=== PATIENT | male | born 1975 | race American Indian/Alaskan Native ===

== ENCOUNTER 2017-09-22 21:44 | Inpatient (IN) | payer MEDICAID, OTHER ==
[2017-09-22 22:07] VITALS: BMI 27.1
[2017-09-22 22:18] LABS: BASO # 0.1 K/uL (0.0-0.2); BASO % 1.1 % (0.0-2.0); EOS # 0.1 K/uL (0.0-0.7); EOS % 0.9 % (0.0-4.0); HEMOGLOBIN 11.9 g/dL (12.0-18.0); LYMPH # 2.3 K/uL (1.0-4.3); LYMPH % 34.7 % (20.0-40.0); MEAN CELL VOLUME 85.5 fL (80.0-94.0); MEAN CORPUSCULAR HEMOGLOBIN 28.2 pg (27.0-31.0); MEAN PLATELET VOLUME 9.8 fL (7.2-11.7); MONO # 0.7 K/uL (0.0-0.8); MONO % 10.4 % (0.0-10.0); NEUT # 3.5 K/uL (1.8-7.0); NEUT % 52.9 % (50.0-75.0); RBC 4.22 Mil/uL (4.40-5.90); RED CELL DISTRIBUTION WIDTH 14.9 % (11.5-14.5); WHITE BLOOD COUNT 6.6 K/uL (4.8-10.8)
[2017-09-22 22:20] LABS: URINE BACTERIA RARE (<OCC); URINE BILIRUBIN NEGATIVE (NEGATIVE); URINE BLOOD NEGATIVE (NEGATIVE); URINE CLARITY Clear (Clear); URINE COLOR Yellow (YELLOW); URINE GLUCOSE (UA) NORMAL (Normal); URINE LEUKOCYTE ESTERASE NEG Leu/uL (Negative); URINE NITRATE NEGATIVE (NEGATIVE); URINE PROTEIN NEGATIVE (NEGATIVE)
[2017-09-22 22:28] LABS: ALB/GLOB RATIO 1.2 (1.0-2.1); ALBUMIN 3.5 g/dL (3.5-5.0); ALT/SGPT 28 U/L (21-72); AST/SGOT 24 U/L (17-59); BLOOD UREA NITROGEN 11 mg/dL (9-20); CALCIUM 8.2 mg/dl (8.6-10.4); GFR AFRICAN-AMERICAN > 60; GFR NON-AFRICAN AMERICAN > 60
[2017-09-22 22:34] LABS: BARBITURATES, UR NEGATIVE (NEGATIVE); BENZODIAZEPINES, UR NEGATIVE (NEGATIVE); OPIATES, UR NEGATIVE (NEGATIVE); PHENCYCLIDINE, UR NEGATIVE (NEGATIVE)
--- NOTE | 2017-09-22 23:07 | C.PDOC ---
History Of Present Illness 41 year old homeless male with PMHx of schizophrenia is brought in by EMS from [facility] for bizarre behaviour. Patient called 911, he reports he is off his schizophrenia medications and is having thoughts on injuring himself. Time Seen by Provider: 09/22/17 22:00 Chief Complaint (Nursing): Psychiatric Evaluation History Per: Patient, EMS History/Exam Limitations: no limitations Onset/Duration Of Symptoms: Hrs Current Symptoms Are (Timing): Still Present Suicide/Self Injury Attempted (Context): None Modifying Factor(s): None Severity: None Associated Symptoms: Suicidal Thoughts, Suicidal Plan Involuntary Hold By: None Recent travel outside of the [place]: No Additional History Per: Patient, EMS Past Medical History Reviewed: Historical Data, Nursing Documentation, Vital Signs Vital Signs: Last Vital Signs Temp 97.3 F L 09/22/17 21:57 Pulse 86 09/22/17 21:57 Resp 16 09/22/17 21:57 BP 113/67 09/22/17 21:57 Pulse Ox 96 09/22/17 23:10 - Medical History PMH: Schizophrenia Denies: Diabetes, Hepatitis, HIV, HTN, Chronic Kidney Disease, Seizures, Sexually Transmitted Disease Surgical History: No Surg Hx - [facility] GROUP PSYCHOTHERAPY (01/25/17) INDIVID PSYCHOTHERAP NEC (04/27/13) INDIVIDUAL PSYCHOTHERAPY, COGNITIVE-BEHAVIORAL (01/25/17) OTHER GROUP THERAPY (04/27/13) Family History: States: Unknown Family Hx - Social History Hx Alcohol Use: Yes (last drink 01/24/17) Hx Substance Use: Yes (mj) Review Of Systems Constitutional: Negative for: Fever, Chills Cardiovascular: Negative for: Chest Pain, Palpitations Respiratory: Negative for: Cough, Shortness of Breath Gastrointestinal: Negative for: Nausea, Vomiting, Abdominal Pain Skin: Negative for: Rash Neurological: Negative for: Weakness, Numbness Psych: Positive for: Suicidal ideation Physical Exam - Physical Exam Appears: Non-toxic, Unkempt, Other (tall muscular black male disheveled, malodorous, bizarre) Skin: Normal Color, Warm, Dry Head: Atraumatic, Normacephalic Nose: No Discharge, No Deformity Oral Mucosa: Moist Neck: Normal ROM, Supple Chest: Symmetrical Cardiovascular: Rhythm Regular, No Murmur Respiratory: Normal Breath Sounds, No Rales, No Rhonchi, No Wheezing Gastrointestinal/Abdominal: Soft, No Tenderness Extremity: Normal ROM, No Pedal Edema, No Calf Tenderness, No Deformity, No Swelling Neurological/Psych: Oriented x3 ED Course And Treatment - Laboratory Results Result Diagrams: 09/22/17 22:13 09/22/17 22:13 Lab Interpretation: Normal (tox, etoh neg.) O2 Sat by Pulse Oximetry: 96 (On RA) Pulse Ox Interpretation: Normal Reevaluation Time: 00:38 Reassessment Condition: Improved (remains calm cooperative) - Physician Consult Information Outcome Of Conversation: 0030: d/w Crisis Workers, ok to admit. Medical Decision Making Medical Decision Making: Plan: * 1:1 obs Disposition Doctor Will See Patient In The: Hospital Counseled Patient/Family Regarding: Studies Performed, Diagnosis - Disposition Disposition: HOSPITALIZED Disposition Time: 00:39 Condition: GOOD Forms: [facility] ([facility]) - Clinical Impression Clinical Impression: Schizophrenia - Scribe Statement The provider has reviewed the documentation as recorded by the Scribe Bruno Stewart All medical record entries made by the Scribe were at my direction and personally dictated by me. I have reviewed the chart and agree that the record accurately reflects my personal performance of the history, physical exam, medical decision making, and the department course for this patient. I have also personally directed, reviewed, and agree with the discharge instructions and disposition.
--- NOTE | 2017-09-23 03:10 | PCM.BM ---
<MarthaViridiana - Last Filed: 09/23/17 03:08> Treatment Plan Problems - Problems identified on initial assessmt Auditory Hallucination Date Initiated: 09/23/17 Time Initiated: :30 Assessment reference: NA Status: Active Suicidal Ideation Date Initiated: 09/23/17 Time Initiated: :30 Status: Monitor (t) Treatment assets and liabiliti Patient Assests: physically healthy Patient Liabilities: financial problems, poor support system, relationship conflicts, language/speech - Milieu Protocol Maintain good personal hygiene: daily Encourage regular showers, daily Remind patient to perform daily oral care Maintain personal safety: every shift Educate patient to report safety concerns to staff, every shift Monitor environment for contraband/sharps Medication safety: Monitor for expected outcome, potential side effects: every shift, Assess barriers to learning: every shift, Assess readiness for medication education: every shift <Porsche Delacruz - Last Filed: 09/28/17 11:48> - Diagnosis (1) Schizophrenia Status: Acute Interventions: 09/28/17 11:48 * Assess/adjust medications daily and /or as needed * See patient on an individual basis 7x/week to assess status of hallucinations * Discuss risks, benefits, side effects and alternatives of medications * <Rosario Weber - Last Filed: 09/28/17 11:55> Family Contact Family involvement: Famj luisy/SO not involved - Goals for Treatment Patient goals for treatment: "I don't want to go to a day program." Discharge/Continuing Care - Education Needs Education Needs: Patient Medication, Patient Coping Skills, Patient Placement options, Patient Community resources - Discharge Discharge Criteria: Tolerates medication w/o severe side effects, Reduction of target symptoms Discharge to:: Custodial - Treatment Team Participation Discussed with Family/SO: No Was Patient/Family/SO present at Treatment Team Meeting: Yes
--- NOTE | 2017-09-25 00:01 | PCM.PSYCH ---
Initial Psychiatric Evaluation - Initial Psychiatric Evaluation Type of Admission: Voluntary Legal Status: Capacity History of Present Illness and Precipitating Events: Pt. is a 41 y/o AA, unemployed, undomiciled male that was transported to Ed after he told [place] police that he was feeling suicidal with a plan to jump in front of a car. Pt. reports that he has a long history of schizophrenia and hearing voices. Pt. denies any A/V/T hallucinations at the moment. Pt. does admit to feeling suicidal for the last couple of days. Pt. reports that he also feels depressed because he is homeless and has been staying at different shelters. Pt. reports that he is from [facility] and has have been hospitalized at [facility] and [facility] [place] [facility] [place]. Pt. reports that he was given Risperdal oral medication in the past, but he has not been taking any medications. Pt. is a poor historian and could not provide a lot of information about his upbringing. Pt. reports that he has no family involvement and that he has never been or has any children. Pt. admits to drinking alcohol in the past, but does not remember the last time he drank alcohol. Pt. was wearing hospital gown. Pt. appearance was unkempt and he had a full isidro. Pt. presented malodorous and unkempt appearance. Pt. appeared stated age. Pt. mood was depressed and affect was constricted. Pt. maintained eye contact and his speech was pressure. No evidence of delusions, but pt. admits to history of auditory hallucinations. No signs of motor activity during this assessment. Pt. was alert and oriented x3. Judgment appeared intact as evidence by insight regarding need for hospitalization Current Medications: Active Medications Generic Name Dose Route Start Last Admin Trade Name Freq PRN Reason Stop Dose Admin Acetaminophen 650 mg 09/23/17 01:21 Tylenol 325mg Tab PO Q6 PRN Pain, moderate (4-7) Aripiprazole 10 mg 09/23/17 14:45 09/24/17 09:38 Abilify PO 10 mg DAILY NINO Administration Hydroxyzine HCl 25 mg 09/23/17 01:21 09/23/17 22:08 Atarax PO 25 mg Q6H PRN Administration Anxiety Sertraline HCl 50 mg 09/24/17 10:00 09/24/17 09:38 Zoloft PO 50 mg DAILY NINO Administration Trazodone HCl 50 mg 09/23/17 01:22 09/24/17 22:13 Desyrel PO 50 mg HS NINO Administration Past Psychiatric History - Past Psychiatric History Previous Treatment History: Inpatient Pertinent Medical Hx (Current Medical&Sleep Prob, Allergies): Allergies Allergy/AdvReac Type Severity Reaction Status Date / Time No Known Allergies Allergy Verified 09/22/17 22:04 Benztropine [Cogentin] 1 mg PO HS 01/25/17 risperiDONE [RisperDAL Tab] 2 mg PO HS 01/25/17 Review of Systems - Review of Systems All systems: reviewed and no additional remarkable complaints except - Psychiatric Psychiatric: Anxiety, Auditory Hallucinations, Irritability, Paranoia, Suicidal Ideation, Visual Hallucinations Mental Status Examination - Personal Presentation Personal Presentation: Looks stated age - Affect Affect: Blunted - Motor Activity Motor Activity: Psychomotor Agitation - Reliability in Providing Information Reliability in Providing Information: Poor, due to alteration in thoughts - Speech Speech: Disorganized - Mood Mood: Anxious - Formal Thought Process Formal Thought Process: Hallucinations, Delusions, Paranoia, Loosening of associations - Hallucinations/Delusions Hallucinations: Visual, Auditory Delusions: Persecution - Obsessions/Compulsions Obsessions: No Compulsions: No - Cognitive Functions Orientation: Person, Place, Situation, Time Sensorium: Alert Attention/Concentration: Attentive Abstract Thinking: [place] Estimate of Intelligence: Below average Judgement: Imparied, as evidence by: Poor judgement, Imparied, as evidence by: Lack of insight into illness - Risk Risk: Suicidal, Diminished functioning - Limitations Limitations: Living alone DSM 5 DX - DSM 5 DSM 5 Diagnosis: Schizophrenia paranoid type continuous - Recommended/Plan of Treatment Treatment Recommendations and Plan of Treatment: Schizophrenia paranoid type continuous CBT Psychoeducation Supportive therapy, group therapy, individual therapy D/C Abilify 10 mg PO QHS Risperdal 2 mg PO QHS Cogentin 1 mg pO QHS Zoloft 50 mg PO Q Daily Hydroxyzine 25 mg PO Q6 hr prn Trazodone 50 mg by mouth daily at bedtime - Smoking Cessation Smoking Cessation Initiated: No
--- NOTE | 2017-09-25 09:37 | PCM.PSYCH ---
Initial Psychiatric Evaluation - Initial Psychiatric Evaluation Type of Admission: Voluntary Legal Status: Capacity Chief Complaint (in patient's own words): I AM DEPRESSED Patient's Reaction to Hospitalization: I NEED TO BE SOMEWHERE SAFE History of Present Illness and Precipitating Events: PT IS A 41 YEAR OLD BLACK HOMELESS UNEMPLOYED MALE WHO AKED TO BEADMITTED BECAUSE OF DEPRESSION AND PARANOIA. PT HAS BEEN HOMELESS SINCE THEAGE OF 19. HIS PARENTA AREMARY ANN. HE IS AN ONLY CHILD. THERE IS NO FAMILY HISTORY OF MENTAL ILLNESS OR SUBSTANCE ABUSE. HE HAS NO LEGAL OR HISTORY. 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 HE HAS NEVER BEEN ON PSYCHIATRIC MEDS. HE HAD A PLAN TO WALK IN FRONT OF A CAR. HE IS PARANOID Current Medications: Active Medications Generic Name Dose Route Start Last Admin Trade Name Freq PRN Reason Stop Dose Admin Acetaminophen 650 mg 09/23/17 01:21 Tylenol 325mg Tab PO Q6 PRN Pain, moderate (4-7) Benztropine Mesylate 1 mg 09/25/17 22:00 Cogentin PO HS NINO Hydroxyzine HCl 25 mg 09/23/17 01:21 09/23/17 22:08 Atarax PO 25 mg Q6H PRN Administration Anxiety Risperidone 2 mg 09/25/17 22:00 Risperdal Tab PO HS NINO Sertraline HCl 50 mg 09/24/17 10:00 09/24/17 09:38 Zoloft PO 50 mg DAILY NINO Administration Trazodone HCl 50 mg 09/23/17 01:22 09/24/17 22:13 Desyrel PO 50 mg HS NINO Administration Past Psychiatric History - Past Psychiatric History Previous Treatment History: None Pertinent Medical Hx (Current Medical&Sleep Prob, Allergies): Allergies Allergy/AdvReac Type Severity Reaction Status Date / Time No Known Allergies Allergy Verified 09/22/17 22:04 Benztropine [Cogentin] 1 mg PO HS 01/25/17 risperiDONE [RisperDAL Tab] 2 mg PO HS 01/25/17 Review of Systems - EENT Eyes: UNREMARKABLE Ears: UNREMARKABLE Nose/Mouth/Throat: UNREMARKABLE - Cardiovascular Cardiovascular: UNREMARKABLE - Respiratory Respiratory: UNREMARKABLE - Gastrointestinal Gastrointestinal: UNREMARKABLE - Genitourinary Genitourinary: UNREMARKABLE - Reproductive: Male Reproductive:Male: UNREMARKABLE - Musculoskeletal Musculoskeletal: UNREMARKABLE - Integumentary Integumentary: UNREMARKABLE - Neurological Neurological: UNREMARKABLE - Psychiatric Psychiatric: Abnormal Sleep Pattern, Anhedonia, Anxiety, Depression, Difficulty Concentrating, Hopelessness, Irritability, Paranoia, Suicidal Ideation - Endocrine Endocrine: UNREMARKABLE - Hematologic/Lymphatic Hematologic: UNREMARKABLE Mental Status Examination - Personal Presentation Personal Presentation: Looks older than stated age, Dressed appropriate to season - Affect Affect: Constricted - Motor Activity Motor Activity: Calm - Reliability in Providing Information Reliability in Providing Information: Fair - Speech Speech: Organized - Mood Mood: Other Additional comments: IRRITABLE - Formal Thought Process Formal Thought Process: Paranoia - Obsessions/Compulsions Obsessions: None Compulsions: None - Cognitive Functions Orientation: Person, Place, Situation, Time Sensorium: Alert Attention/Concentration: Attentive Abstract Thinking: [place] Estimate of Intelligence: Average Judgement: Intact, as evidence by: Insight regarding need for hospitalization Memory: Recent intact, as evidence by: Ability to recall events of the day, Remote intact, as evidenced by: Ability to recall historical events - Risk Risk: Suicidal - Strength & Assets Inventory Strength & Assets Inventory: Education - Limitations Limitations: Other Additional comments: HOMELESS DSM 5 DX - DSM 5 DSM 5 Diagnosis: MAJOR DEPRESSIVE DISORDER SINGLE EPISODE SEVERE WITH PSYCHOTIC FEATURES ABILIDYLAN ZOLOFT GROUPS SUPPORTIVE PSYCHOTHERAPY - Recommended/Plan of Treatment Treatment Recommendations and Plan of Treatment: MDD ZOLOFT LISBETH Projected ELOS: 10 DAYS Discharge Plan and Discharge Criteria: NO LONGER SUICIDAL - Smoking Cessation Smoking Cessation Initiated: No
--- NOTE | 2017-09-25 10:08 | PCM.PYCHPN ---
Psychiatric Progress Note - Psychiatric Progress Note Patient seen today, length of contact: 15 min Patient Chief Complaint: I am melania.' Problems Identified/Issues Discussed: Patient seen and evaluated, chart reviewed and discussed with the nurse. Patient remained disorganized and internally preoccupied. Patient remained isolated, confined and withdrawn. He still reports of hearing voices. Patient still appears paranoid and delusional. He reports depressed mood and remained isolated and withdrawn. He continued to pace back and forth in the hallways. He is taking medication and denies any side effects. Supportive therapy and psychoeducation were given. Medication Change: No Medical Record Reviewed: Yes Mental Status Examination - Cognitive Function Orientation: Person, Place, Situation, Time Memory: Intact Attention: WNL Concentration: Poor Association: Loose Fund of Knowledge: Poor - Mood Mood: Anxious - Affect Affect: Broad, Constricted - Speech Speech: Loud, Pressured - Formal Thought Process Formal Thought Process: Hallucinations, Delusions, Paranoia, Loosening of associations - Suicidal Ideation Suicidal Ideation: No - Homicidal Ideation Homicidal Ideation: No Goal/Treatment Plan - Goal/Treatment Plan Need for Continued Stay: Remain at risks for inpatient hospitalization, Discharge may exacerbated symptoms, Failed transitioning Progress Toward Problem(s) and Goals/Treatment Plan: Schizophrenia paranoid type continuous CBT Psychoeducation Supportive therapy, group therapy, individual therapy Risperdal 2 mg PO QHS Cogentin 1 mg pO QHS Zoloft 50 mg PO Q Daily Hydroxyzine 25 mg PO Q6 hr prn Trazodone 50 mg by mouth daily at bedtime - Smoking Cessation Smoking Cessation Initiated: No
--- NOTE | 2017-09-25 10:09 | PCM.PYCHPN ---
Psychiatric Progress Note - Psychiatric Progress Note Patient seen today, length of contact: 15 min Patient Chief Complaint: I am melania Problems Identified/Issues Discussed: Patient seen and evaluated, chart reviewed and discussed with the nurse. As per the staff, pt remained disheveled and unkempt. He remained disorganized and internally preoccupied. He is responding to the internal stimuli. He remained isolated, confined and withdrawn, and reports of hearing voices. Patient still appears paranoid and delusional and reports depressed mood. He continued to pace back and forth in the hallways. He is taking medication and denies any side effects. Supportive therapy and psychoeducation were given. Medication Change: Yes (increase Trazodone) Medical Record Reviewed: Yes Mental Status Examination - Cognitive Function Orientation: Person, Place, Situation, Time Memory: Intact Attention: WNL Concentration: Poor Association: Loose Fund of Knowledge: Poor - Mood Mood: Anxious - Affect Affect: Broad, Constricted - Speech Speech: Loud, Pressured - Formal Thought Process Formal Thought Process: Hallucinations, Delusions, Paranoia, Loosening of associations - Suicidal Ideation Suicidal Ideation: No - Homicidal Ideation Homicidal Ideation: No Goal/Treatment Plan - Goal/Treatment Plan Need for Continued Stay: Remain at risks for inpatient hospitalization, Discharge may exacerbated symptoms, Failed transitioning Progress Toward Problem(s) and Goals/Treatment Plan: Schizophrenia paranoid type continuous CBT Psychoeducation Supportive therapy, group therapy, individual therapy Risperdal 2 mg PO QHS Cogentin 1 mg pO QHS Zoloft 50 mg PO Q Daily Hydroxyzine 25 mg PO Q6 hr prn Increase Trazodone 100 mg by mouth daily at bedtime - Smoking Cessation Smoking Cessation Initiated: No
--- NOTE | 2017-09-26 10:32 | PCM.PYCHPN ---
Psychiatric Progress Note - Psychiatric Progress Note Patient seen today, length of contact: 15 min Patient Chief Complaint: I am feeling melania Problems Identified/Issues Discussed: Patient seen and evaluated, chart reviewed and discussed with the nurse. Patient remained disheveled and unkempt and still appears disorganized and internally preoccupied and responding to the internal stimuli. Patient still appears paranoid and delusional and reports depressed mood. He continued to pace back and forth in the hallways. He remained isolated, confined and withdrawn, and reports of hearing voices. He is taking medication and denies any side effects. Supportive therapy and psychoeducation were given. Medication Change: Yes (start haldol, d/c risperdal) Medical Record Reviewed: Yes Mental Status Examination - Cognitive Function Orientation: Person, Place, Situation, Time Memory: Intact Attention: WNL Concentration: Poor Association: Loose Fund of Knowledge: Poor - Mood Mood: Anxious - Affect Affect: Broad, Constricted - Speech Speech: Loud, Pressured - Formal Thought Process Formal Thought Process: Hallucinations, Delusions, Paranoia, Loosening of associations - Suicidal Ideation Suicidal Ideation: No - Homicidal Ideation Homicidal Ideation: No Goal/Treatment Plan - Goal/Treatment Plan Need for Continued Stay: Remain at risks for inpatient hospitalization, Discharge may exacerbated symptoms, Failed transitioning Progress Toward Problem(s) and Goals/Treatment Plan: Schizophrenia paranoid type continuous CBT Psychoeducation Supportive therapy, group therapy, individual therapy Start Haldol 5 mg PO BID d./c Risperdal 2 mg PO QHS Cogentin 1 mg pO QBID Zoloft 50 mg PO Q Daily Hydroxyzine 25 mg PO Q6 hr prn Increase Trazodone 100 mg by mouth daily at bedtime - Smoking Cessation Smoking Cessation Initiated: No
--- NOTE | 2017-09-27 12:42 | PCM.PYCHPN ---
Psychiatric Progress Note - Psychiatric Progress Note Patient seen today, length of contact: 15 min Patient Chief Complaint: I am feeling melania Problems Identified/Issues Discussed: Patient seen and evaluated, chart reviewed and discussed with the nurse. Staff stated that last night they found cups of feces in his room and fecal matter on the [place]. When confronted about the matter he stated that he did not do it, his mother did. Staff also stated when they returned he had cleaned the mess himself. Upon interviewing patient he states he feels well and is wondering when he is leaving. Patient remained disheveled and unkempt and still appears disorganized and internally preoccupied and responding to the internal stimuli. Patient still appears paranoid and delusional. He continued to pace back and forth in the hallways. He remained isolated, confined and withdrawn, and reports of hearing voices. He is taking medication and denies any side effects. Supportive therapy and psychoeducation were given. Medication Change: Yes (Increase haldol) Medical Record Reviewed: Yes Mental Status Examination - Cognitive Function Orientation: Person, Place, Situation, Time Memory: Intact Attention: Poor Concentration: Poor Association: Loose Fund of Knowledge: Poor - Mood Mood: Anxious - Affect Affect: Broad, Constricted - Speech Speech: Loud, Pressured - Formal Thought Process Formal Thought Process: Hallucinations, Delusions, Paranoia, Loosening of associations - Suicidal Ideation Suicidal Ideation: No - Homicidal Ideation Homicidal Ideation: No Goal/Treatment Plan - Goal/Treatment Plan Need for Continued Stay: Remain at risks for inpatient hospitalization, Discharge may exacerbated symptoms, Failed transitioning Progress Toward Problem(s) and Goals/Treatment Plan: Schizophrenia paranoid type continuous CBT Psychoeducation Supportive therapy, group therapy, individual therapy Increase Haldol 10 mg PO BID Cogentin 1 mg pO QBID Zoloft 50 mg PO Q Daily Hydroxyzine 25 mg PO Q6 hr prn Trazodone 100 mg by mouth daily at bedtime - Smoking Cessation Smoking Cessation Initiated: No
--- NOTE | 2017-09-28 11:49 | PCM.PYCHPN ---
Psychiatric Progress Note - Psychiatric Progress Note Patient seen today, length of contact: 15 min Patient Chief Complaint: I am feeling melania Problems Identified/Issues Discussed: Patient seen and evaluated, chart reviewed and discussed with the nurse. Patient still appears disorganized and internally preoccupied and appears to be responding to the internal stimuli. He remained disheveled and unkempt. As per the staff he was still putting feces on the [place], last night. Patient still appears paranoid and delusional. He continued to pace back and forth in the hallways. He remained isolated, confined and withdrawn. He is taking medication and denies any side effects. He needs more time for stabilization. Supportive therapy and psychoeducation were given. Medication Change: Yes (start klonopin) Medical Record Reviewed: Yes Mental Status Examination - Cognitive Function Orientation: Person, Place, Situation, Time Memory: Intact Attention: Poor Concentration: Poor Association: Loose Fund of Knowledge: Poor - Mood Mood: Anxious - Affect Affect: Broad, Constricted - Speech Speech: Loud, Pressured - Formal Thought Process Formal Thought Process: Hallucinations, Delusions, Paranoia, Loosening of associations - Suicidal Ideation Suicidal Ideation: No - Homicidal Ideation Homicidal Ideation: No Goal/Treatment Plan - Goal/Treatment Plan Need for Continued Stay: Remain at risks for inpatient hospitalization, Discharge may exacerbated symptoms, Failed transitioning Progress Toward Problem(s) and Goals/Treatment Plan: Schizophrenia paranoid type continuous CBT Psychoeducation Supportive therapy, group therapy, individual therapy Haldol 10 mg PO BID Cogentin 1 mg pO QBID Zoloft 50 mg PO Q Daily Hydroxyzine 25 mg PO Q6 hr prn Trazodone 100 mg by mouth daily at bedtime Start Klonopin 1 mg po BID - Smoking Cessation Smoking Cessation Initiated: No
--- NOTE | 2017-09-29 19:06 | PCM.PYCHPN ---
Psychiatric Progress Note - Psychiatric Progress Note Patient seen today, length of contact: 15 min Patient Chief Complaint: "I'm Okay" Problems Identified/Issues Discussed: Patient seen and evaluated, chart reviewed and discussed with the nurse. Patient still appears disorganized, isolated, and internally preoccupied and appears to be responding to the internal stimuli. He remained disheveled and unkempt. As per the staff he was still putting feces on the [place], last night. Patient still appears paranoid and delusional. He is able to attend some groups. He continued to pace back and forth in the hallways. He remained isolated, confined and withdrawn. He is taking medication and denies any side effects. He needs more time for stabilization. Supportive therapy and psychoeducation were given. Medication Change: Yes (start klonopin) Medical Record Reviewed: Yes Mental Status Examination - Cognitive Function Orientation: Person, Place, Situation, Time Memory: Intact Attention: WNL Concentration: Poor Association: Loose Fund of Knowledge: Poor Decription of patient's judgement and insights: Limited/Limited Addtional comments: Pt appeared internally preoccupied and responding to stimuli - Mood Mood: Anxious - Affect Affect: Broad, Constricted - Speech Speech: Appropriate, Pressured - Formal Thought Process Formal Thought Process: Hallucinations, Delusions, Paranoia, Loosening of associations Psychotic Thoughts and Behaviors: he appeared internally preoccupied and responding to stimuli - Suicidal Ideation Suicidal Ideation: No Plan: denied - Homicidal Ideation Homicidal Ideation: No Plan: denied Goal/Treatment Plan - Goal/Treatment Plan Need for Continued Stay: Remain at risks for inpatient hospitalization, Discharge may exacerbated symptoms, Failed transitioning Progress Toward Problem(s) and Goals/Treatment Plan: Continue current treatment as per primary team. Therapy in milieu. Meds benefits, side effects, risk was discussed with the pt. Pt verbalized understanding and agree with the treatment plan. Estimated Date of D/C: 10/04/17 - Smoking Cessation Smoking Cessation Initiated: Yes
[2017-09-30] MEDS ORDERED: Haloperidol Decanoate 100 mg/ml Inj IM ONE (10:00)
--- NOTE | 2017-09-30 17:02 | PCM.PYCHPN ---
Psychiatric Progress Note - Psychiatric Progress Note Patient seen today, length of contact: 15 min Patient Chief Complaint: "I'm Okay" Problems Identified/Issues Discussed: Patient seen and evaluated, chart reviewed and discussed with the nurse. Patient still appears disorganized, isolated, and internally preoccupied and appears to be responding to the internal stimuli. He remained disheveled and unkempt. As per the staff he was still putting feces on the [place], and in the bags. Patient still appears paranoid and delusional. He is able to attend some groups. He continued to pace back and forth in the hallways. He remained isolated, confined and withdrawn. He is taking medication and denies any side effects. He needs more time for stabilization. Supportive therapy and psychoeducation were given. Medication Change: Yes (start klonopin) Medical Record Reviewed: Yes Mental Status Examination - Cognitive Function Orientation: Person, Place, Situation, Time Memory: Intact Attention: WNL Concentration: Poor Association: Loose Fund of Knowledge: Poor Decription of patient's judgement and insights: Limited/Limited - Mood Mood: Anxious - Affect Affect: Broad, Constricted - Speech Speech: Appropriate, Pressured - Formal Thought Process Formal Thought Process: Hallucinations, Delusions, Paranoia, Loosening of associations Psychotic Thoughts and Behaviors: he appeared internally preoccupied and responding to stimuli - Suicidal Ideation Suicidal Ideation: No Plan: denied - Homicidal Ideation Homicidal Ideation: No Plan: denied Goal/Treatment Plan - Goal/Treatment Plan Need for Continued Stay: Remain at risks for inpatient hospitalization, Discharge may exacerbated symptoms, Failed transitioning Progress Toward Problem(s) and Goals/Treatment Plan: Continue current treatment as per primary team. Therapy in milieu. Meds benefits, side effects, risk was discussed with the pt. Pt verbalized understanding and agree with the treatment plan. Estimated Date of D/C: 10/04/17 - Smoking Cessation Smoking Cessation Initiated: Yes
--- NOTE | 2017-10-01 11:51 | PCM.PYCHPN ---
Psychiatric Progress Note - Psychiatric Progress Note Patient seen today, length of contact: 15 min Patient Chief Complaint: I am feeling melania Problems Identified/Issues Discussed: Patient seen and evaluated, chart reviewed and discussed with the nurse. Patient still appears disorganized and internally preoccupied and appears to be responding to the internal stimuli. He remained disheveled and unkempt. As per the staff he was still putting feces on the [place] and in socks. It was reported that he also has been playing with his feces. Patient still appears paranoid and delusional. He continued to pace back and forth in the hallways. He remained isolated, confined and withdrawn. He is taking medication and denies any side effects. He needs more time for stabilization. Supportive therapy and psychoeducation were given. Medication Change: Yes (start klonopin) Medical Record Reviewed: Yes Mental Status Examination - Cognitive Function Orientation: Person, Place, Situation, Time Memory: Intact Attention: Poor Concentration: Poor Association: Loose Fund of Knowledge: Poor - Mood Mood: Anxious - Affect Affect: Broad, Constricted, Flat - Speech Speech: Soft, Pressured - Formal Thought Process Formal Thought Process: Hallucinations, Delusions, Paranoia, Loosening of associations - Suicidal Ideation Suicidal Ideation: No - Homicidal Ideation Homicidal Ideation: No Goal/Treatment Plan - Goal/Treatment Plan Need for Continued Stay: Remain at risks for inpatient hospitalization, Discharge may exacerbated symptoms, Failed transitioning Progress Toward Problem(s) and Goals/Treatment Plan: Schizophrenia paranoid type continuous CBT Psychoeducation Supportive therapy, group therapy, individual therapy Haldol 10 mg PO BID Cogentin 1 mg pO QBID Zoloft 50 mg PO Q Daily Hydroxyzine 25 mg PO Q6 hr prn Trazodone 100 mg by mouth daily at bedtime Start Klonopin 1 mg po BID Estimated Date of D/C: 10/04/17
[2017-10-01 19:54] LABS: BASO % 0.5 % (0.0-2.0); EOS # 0.1 K/uL (0.0-0.7); EOS % 0.8 % (0.0-4.0); LYMPH % 30.2 % (20.0-40.0); MEAN CELL VOLUME 86.6 fL (80.0-94.0); MEAN CORPUSCULAR HEMOGLOBIN 27.7 pg (27.0-31.0); MEAN PLATELET VOLUME 9.8 fL (7.2-11.7); MONO # 0.8 K/uL (0.0-0.8); MONO % 11.6 % (0.0-10.0); NEUT # 3.7 K/uL (1.8-7.0); NEUT % 56.9 % (50.0-75.0); NRBC % 0.1 % (0.0-2.0); RBC 4.34 Mil/uL (4.40-5.90); RED CELL DISTRIBUTION WIDTH 14.5 % (11.5-14.5); WHITE BLOOD COUNT 6.6 K/uL (4.8-10.8)
[2017-10-01 20:09] LABS: BLOOD UREA NITROGEN 18 mg/dL (9-20); CALCIUM 7.9 mg/dl (8.6-10.4); GFR AFRICAN-AMERICAN > 60; GFR NON-AFRICAN AMERICAN > 60
[2017-10-02 06:34] VITALS: RESP 20; TEMP 97.8; O2SAT 99
[2017-10-02 16:21] VITALS: BP 101/55; PULSE 106
--- NOTE | 2017-10-03 10:46 | PCM.PYCHDC ---
Mental Status Examination - Mental Status Examination Orientation: Person, Place, Situation, Time Discharge Summary - Discharge Note Consultations:: List each consultation separately and include: 1. Reason for request. 2. Findings. 3. Follow-up Summary of Hospital Course include:: 1. Description of specific treatment plan utilized for patients during their course of treatmen. 2. Summarize the time- course for resolution of acute symptoms and/or regressed behaviors. 3. Describe issues identified and worked on during hospitalization. 4. Describe medication utilized. 5. Describe medical problems identified and treated. 6. Reassessment of suicide risk - Diagnosis (1) Schizophrenia Current Visit: Yes Status: Acute - Final Diagnosis (DSM 5) Condition upon Discharge: GOOD Disposition: AGAINST MEDICAL ADVICE Follow-up Treatment Plan: Schizophrenia paranoid type continuous CBT Psychoeducation Supportive therapy, group therapy, individual therapy Haldol 10 mg PO BID Cogentin 1 mg pO QBID Zoloft 50 mg PO Q Daily Hydroxyzine 25 mg PO Q6 hr prn Trazodone 100 mg by mouth daily at bedtime Start Klonopin 1 mg po BID Prescriptions/Medication Reconciliation: Benztropine [Cogentin] 1 mg PO BID #60 tab Haloperidol [Haldol] 10 mg PO BID #60 tab risperiDONE [RisperDAL Tab] 1 mg PO BID #60 tab Sertraline [Zoloft] 50 mg PO DAILY #30 tab traZODone [Desyrel] 100 mg PO HS #30 tab
== END 2017-10-03 12:51 | disposition home or self-care (01) | DRG 430 ==
LOC: C.ER 21:44 → C.5E 09-23 00:37
PROVIDERS: ADMIT Psychiatry & Neurology Psychiatry; ATTEND Psychiatry & Neurology Psychiatry
PROC: GZ56ZZZ Individual Psychotherapy, Supportive (ICD-10-PCS; principal; 2017-09-23)
DX: F20.0 Paranoid schizophrenia (principal); Z59.0 Homelessness